=== PATIENT | male | born 1990 | race Caucasian/White ===

== ENCOUNTER 2022-02-02 17:54 | Inpatient (IN) | payer OTHER ==
[2022-02-02 18:45] VITALS: BMI 22.9
[2022-02-02] MEDS ORDERED: NICOTINE 10 MG CARTRIDGE (INHALER) IH PRN (21:08)
[2022-02-02] MEDS ORDERED: ACETAMINOPHEN 325 MG TABLET (FP) PO PRN ×2 (21:08)
[2022-02-02] MEDS ORDERED: DICYCLOMINE HCL 10 MG CAPSULE PO PRN (21:08)
[2022-02-02] MEDS ORDERED: BENZOCAINE/MENTHOL (CHLORASEPTIC ) LOZENGE MM PRN (21:08)
[2022-02-02] MEDS ORDERED: ONDANSETRON *ODT* 4 MG TABLET SL PRN (21:08)
[2022-02-02] MEDS ORDERED: IBUPROFEN 400 MG TABLET (FP) PO PRN (21:08)
[2022-02-02] MEDS ORDERED: MAGNESIUM HYDROX 2400MG/30ML ORAL SUSPENSION 30 ML CUP PO PRN (21:08)
[2022-02-02] MEDS ORDERED: IBUPROFEN 600 MG TABLET (FP) PO PRN (21:08)
[2022-02-02] MEDS ORDERED: MAGNESIUM CITRATE 300 ML BOTTLE PO PRN (21:08)
[2022-02-02] MEDS ORDERED: METHOCARBAMOL 500 MG TABLET PO PRN (21:08)
[2022-02-02] MEDS ORDERED: MAG HYDROX/AL HYDROX/SIMETH 30 ML UNIT-DOSE CUP PO PRN (21:08)
[2022-02-02] MEDS ORDERED: BISMUTH SUBSALICYLATE 524 MG/30 ML PO PRN (21:08)
[2022-02-02] MEDS ORDERED: LOPERAMIDE HCL 2 MG CAPSULE PO PRN (21:08)
[2022-02-02] MEDS ORDERED: MELATONIN 5 MG TABLETS PO SCH (22:00)
[2022-02-02] MEDS ORDERED: THIAMINE HCL 100 MG TABLET (FP) PO SCH (22:00)
[2022-02-02] MEDS: hydrOXYzine PAMOATE 25 MG CAPSULE (FP) PO SCH (22:25)
[2022-02-03] MEDS: hydrOXYzine PAMOATE 25 MG CAPSULE (FP) PO SCH ×3 (05:51→15:46)
[2022-02-03] MEDS ORDERED: PRENATAL VITAMINS W/ FOLIC ACID TABLET (FP) PO SCH (10:00)
[2022-02-03 10:35] LABS: HEMATOCRIT 42.7 % (35.4-49); HEMOGLOBIN 14.2 GM/dL (11.7-16.9); MCH 29.8 pg (25.7-33.7); MCHC 33.3 g/dl (32.0-35.9); MEAN CELL VOLUME 89.5 fl (80-96); MEAN PLT VOLUME 9.1 fl (7.5-11.1); PLATELET COUNT 286 10^3/uL (134-434); RBC 4.77 M/mm3 (4.00-5.60); RDW 13.8 % (11.9-15.9); WHITE BLOOD COUNT 6.6 K/mm3 (4.0-10.0)
[2022-02-03 10:40] LABS: CALCIUM 9.2 mg/dL (8.5-10.1)
[2022-02-03 10:43] LABS: CREATININE 0.9 mg/dL (0.55-1.3)
[2022-02-03 10:44] LABS: ALBUMIN 3.7 g/dl (3.4-5.0); BLOOD UREA NITROGEN 10.6 mg/dL (7-18)
[2022-02-03 10:45] LABS: TOT PROT 6.6 g/dl (6.4-8.2)
[2022-02-03 10:47] LABS: BILIRUBIN,TOTAL 1.2 mg/dL (0.2-1)
[2022-02-03 11:27] LABS: HIV INTERPRETATION NEGATIVE (NEGATIVE)
[2022-02-03 17:48] VITALS: BP 141/76; PULSE 55; RESP 16; TEMP 98.2
== END 2022-02-03 17:43 | disposition left against medical advice (07) | DRG 775 ==
LOC: YASAS 17:54 → Y6N 21:32
PROVIDERS: ADMIT Allergy & Immunology; ATTEND Surgery
PROC: HZ2ZZZZ Detoxification Services for Substance Abuse Treatment (ICD-10-PCS; principal; 2022-02-02)
DX: F10.230 Alcohol dependence with withdrawal, uncomplicated (principal); F12.20 Cannabis dependence, uncomplicated; F17.210 Nicotine dependence, cigarettes, uncomplicated; F91.8 Other conduct disorders; Z91.19 Patient's noncompliance with other medical treatment and regimen; Z28.310 Unvaccinated for COVID-19; Z28.9 Immunization not carried out for unspecified reason
CPT/HCPCS: 36415; 80053; 85027; 86780; 87389; 87811; C9803-CS; U0003; U0005